=== PATIENT | female | born 1940 | race Hispanic/Latino ===

== ENCOUNTER 2017-05-01 14:51 | Emergency (ER) | payer OTHER ==
[~2017-05-01 14:51] MED LIST: DICY20TA11 PO; ISOS20TA7 PO; LEVO50TA11 PO; METO75TA PO; NITR0.4T50 SL; ONDA4TAB10 PO; OPIU10TI5 PO; POTA20TA82 PO; PRAV40TA3 PO; SERT100T12 PO; TEMA30CA PO
[2017-05-01 15:49] LABS: BASOPHILS % (AUTO) 0.8 % (0.0-5.0); EOSINOPHILS % (AUTO) 4.8 % (0.0-8.0); HEMATOCRIT 33.6 % (36-48); LYMPHOCYTES % (AUTO) 31.8 % (21.0-51.0); MEAN CORPUSCULAR HEMOGLOBIN 31.2 pg (27.0-33.0); MEAN CORPUSCULAR HGB CONC 33.1 g/dL (32.0-36.0); MEAN CORPUSCULAR VOLUME 94.2 fL (79-99); MONOCYTES % (AUTO) 17.7 % (3.0-13.0); NEUTROPHILS % (AUTO) 44.9 % (40.0-77.0); PLATELET COUNT (AUTO) 209 K/uL (130-400); RED BLOOD CELL COUNT(AUTO) 3.57 MIL/uL (4.00-5.50); WHITE BLOOD COUNT (AUTO) 7.9 K/uL (4.8-10.8)
[2017-05-01 16:03] LABS: INR 1.09 (0.85-1.15); PARTIAL THROMBOPLASTIN TIME 32.4 SEC (26.3-35.5); PROTHROMBIN TIME 11.4 SEC (9.6-11.6)
[2017-05-01 16:48] LABS: CREATININE 0.9 mg/dL (0.5-1.5); POTASSIUM 3.8 mmol/L (3.5-5.1)
[2017-05-01 16:55] LABS: ALBUMIN 1.8 g/dL (3.5-5.0); BILIRUBIN,TOTAL 0.3 mg/dL (0.2-1.0); TOTAL PROTEIN, SERUM 6.3 g/dL (6.0-8.3)
[2017-05-01 17:00] LABS: CREATINE KINASE MB < 0.5 ng/mL (0.5-3.6); CREATINE KINASE, TOTAL 158 U/L (21-232)
== END 2017-05-01 17:51 | disposition home or self-care (01) ==
LOC: EDH 14:51
DX: L02.31 Cutaneous abscess of buttock (principal); C79.60 Secondary malignant neoplasm of unspecified ovary; E78.5 Hyperlipidemia, unspecified; I10 Essential (primary) hypertension; E03.9 Hypothyroidism, unspecified; Z88.6 Allergy status to analgesic agent; Z72.0 Tobacco use
CPT/HCPCS: 36415; 71010; 72192; 80053; 82550; 82553; 84484; 85025; 85610; 85730; 93005

== ENCOUNTER 2017-05-26 17:26 | Inpatient (IN) | payer OTHER ==
[~2017-05-26] VITALS: Ht 154.9 cm; Wt 52.6 kg
[2017-05-26] MEDS ORDERED: ACETAMINOPHEN EXTRA STRENGTH 500 MG TABLET ONE (17:27)
[2017-05-26] MEDS ORDERED: CEFTRIAXONE SODIUM 1 GM ONE (17:47)
[2017-05-26 17:54] LABS: BASOPHILS % (AUTO) 0.4 % (0.0-5.0); EOSINOPHILS % (AUTO) 0.3 % (0.0-8.0); MEAN CORPUSCULAR HEMOGLOBIN 31.3 pg (27.0-33.0); MEAN CORPUSCULAR HGB CONC 33.4 g/dL (32.0-36.0); MEAN CORPUSCULAR VOLUME 93.7 fL (79-99); MONOCYTES % (AUTO) 4.7 % (3.0-13.0); NEUTROPHILS % (AUTO) 76.6 % (40.0-77.0); PLATELET COUNT (AUTO) 147 K/uL (130-400); RED BLOOD CELL COUNT(AUTO) 4.38 MIL/uL (4.00-5.50); RED CELL DISTRIBUTION WIDTH 17.4 % (11.0-15.5); WHITE BLOOD COUNT (AUTO) 14.4 K/uL (4.8-10.8)
[2017-05-26 18:06] LABS: CARBON DIOXIDE 24 mmol/L (21-32); CHLORIDE 100 mmol/L (101-111); GLOMERULAR FILTR. RATE CALC 57 mL/min (>60); GLUCOSE,RANDOM 85 mg/dL (70-105); INR 1.03 (0.85-1.15); PARTIAL THROMBOPLASTIN TIME 28.5 SEC (26.3-35.5); POTASSIUM 3.8 mmol/L (3.5-5.1); PROTHROMBIN TIME 10.8 SEC (9.6-11.6); SODIUM SERUM 135 mmol/L (136-145); UREA NITROGEN, BLOOD 14 mg/dL (7-18)
[2017-05-26 18:21] LABS: ALANINE AMINOTRANSFERASE 18 U/L (12-78); ALBUMIN 2.8 g/dL (3.5-5.0); ASPARTATE AMINOTRANSFERASE 33 U/L (10-37); BILIRUBIN,TOTAL 0.6 mg/dL (0.2-1.0); CREATINE KINASE MB < 0.5 ng/mL (0.5-3.6); MYOGLOBIN 267 ng/mL (10-92); TOTAL PROTEIN, SERUM 7.2 g/dL (6.0-8.3); TROPONIN I < 0.04 ng/mL (0.00-0.06)
[2017-05-26 18:23] LABS: CREATINE KINASE, TOTAL 439 U/L (21-232)
[2017-05-26 19:56] LABS: APPEARANCE,URINE CLOUDY (CLEAR); BILIRUBIN,URINE NEGATIVE (NEGATIVE); COLOR,URINE YELLOW (YELLOW); GLUCOSE, URINE (UA) NEGATIVE (NEGATIVE); KETONES,URINE NEGATIVE (NEGATIVE); LEUKOCYTE ESTERASE ,URINE LARGE (NEGATIVE); NITRATE,URINE POSITIVE (NEGATIVE); OCCULT BLOOD,URINE LARGE (NEGATIVE); PH,URINE 5.5 (5.0-8.0); PROTEIN,URINE TRACE (NEGATIVE); UROBILINOGEN,URINE 0.2 mg/dL (0.2-1.0)
[2017-05-26 20:03] LABS: WBC,URINE >100 /HPF (0-1)
[2017-05-26 20:05] LABS: BACTERIA,URINE Moderate /HPF (None Seen)
[2017-05-26 20:06] LABS: MUCUS,URINE Few LPF (None Seen); SQUAMOUS EPITHELIAL CELL,UR Rare /LPF (0-2)
[2017-05-26] MEDS ORDERED: DIPHENOXYLATE HCL/ATROPINE 2.5/0.025 MG TAB PO ONE (22:03)
[2017-05-26] MEDS ORDERED: MEPERIDINE-PF 25 MG/ML SYG ONE (22:05)
[2017-05-26] MEDS ORDERED: SODIUM CHLORIDE 0.9% 50 ML IV ONE (22:07)
[2017-05-26] MEDS ORDERED: LIDOCAINE HCL-MPF 1% 2ML VIAL IVP PRN (23:30)
[2017-05-26] MEDS ORDERED: LEVOFLOXACIN 500 MG/D5W 100 ML 100 ML IV SCH (23:30)
[2017-05-26] MEDS ORDERED: ZOSYN 3.375GM+NS 50ML 50 ML IV ONE (23:39)
[2017-05-26] MEDS ORDERED: LEVOFLOXACIN 500 MG/D5W 100 ML 100 ML ONE (23:40)
[2017-05-26] MEDS ORDERED: SODIUM CHLORIDE 0.9% 1000ML 1,000 ML IV ONE (23:40)
[2017-05-27] VITALS (7 sets, daily range): BP systolic 108–130; BP diastolic 58–71
[2017-05-27] MEDS ORDERED: DiphenhydrAMINE HCL 50 MG/ML VIAL ONE (00:04)
[2017-05-27] MEDS ORDERED: DiphenhydrAMINE HCL 25 MG/10 ML ELIXIR UDCUP PO PRN (00:15)
[2017-05-27] MEDS: SODIUM CHLORIDE 0.9% 1000ML 1,000 ML IV SCH ×2 (03:22→20:30)
[2017-05-27] MEDS ORDERED: MEGE400O4 PO (04:16)
[2017-05-27] MEDS ORDERED: ATOR10 PO (04:16)
[2017-05-27] MEDS ORDERED: MORP15TA70 PO (04:16)
[2017-05-27] MEDS ORDERED: FAMO-136 PO (04:16)
[2017-05-27] MEDS ORDERED: MORPHINE IR PO (04:16)
[2017-05-27] MEDS: ZOSYN 3.375GM+NS 50ML 50 ML IV SCH ×3 (05:20→20:05)
[2017-05-27] MEDS: IPRATROPIUM/ALBUTEROL SULFATE 3 ML SOLUTION IH SCH ×5 (06:24→23:31)
[2017-05-27] MEDS: ONDANSETRON HCL 4 MG/2 ML VIAL IV PRN ×2 (07:18→19:58)
[2017-05-27] MEDS: FAMOTIDINE/PF 20 MG/2 ML VIAL IV SCH ×2 (09:57→20:01)
[2017-05-27] MEDS: GUAIFENESIN-DM 200/20 MG 10 ML PO PRN (09:57)
[2017-05-27] MEDS: ENOXAPARIN SODIUM 40 MG/0.4 ML SYRINGE SQ SCH (10:00)
[2017-05-27] MEDS ORDERED: MORPHINE IR 30 MG PO PRN (11:00)
[2017-05-27] MEDS ORDERED: NITROGLYCERIN 0.4 MG SL TAB SL SCH (11:00)
[2017-05-27] MEDS ORDERED: ONDANSETRON ODT 4 MG TAB PO SCH (11:00)
[2017-05-27] MEDS ORDERED: TEMAZEPAM 30 MG CAP PO PRN (11:00)
[2017-05-27] MEDS ORDERED: COMPOUND PO MISCELLANEOUS 1 EACH MISC MISC PRN (11:00)
[2017-05-27] MEDS ORDERED: LORAZEPAM 2 MG/ML 1 ML VIAL IVP PRN (12:00)
[2017-05-27] MEDS: ACETAMINOPHEN 325 MG TAB PO PRN (12:48)
[2017-05-27] MEDS: METRONIDAZOLE 500MG/100ML BAG 100 ML IV SCH ×2 (14:40→20:08)
[2017-05-27] MEDS: OSELTAMIVIR SUSP 15 MG/ML (6 CAPS/29ML) PO SCH ×2 (20:04)
[2017-05-27] MEDS: ATORVASTATIN CALCIUM 10 MG TABLET PO SCH (20:11)
[2017-05-27] MEDS: MORPHINE SULFATE IR 15 MG TAB 15 MG TABLET PO PRN (20:21)
[2017-05-27] MEDS: METOPROLOL TARTRATE 50 MG TAB PO SCH (20:22)
[2017-05-27] MEDS ORDERED: OSELTAMIVIR PHOSPHATE 75 MG CAP PO SCH (21:00)
[2017-05-28] MEDS: GUAIFENESIN-DM 200/20 MG 10 ML PO PRN ×2 (02:43→21:32)
[2017-05-28] MEDS: ACETAMINOPHEN 325 MG TAB PO PRN (02:48)
[2017-05-28 03:21] LABS: HEMATOCRIT 34.7 % (36-48); MEAN CORPUSCULAR HEMOGLOBIN 31.8 pg (27.0-33.0); MEAN CORPUSCULAR HGB CONC 33.6 g/dL (32.0-36.0); MEAN CORPUSCULAR VOLUME 94.7 fL (79-99); PLATELET COUNT (AUTO) 107 K/uL (130-400); RED BLOOD CELL COUNT(AUTO) 3.67 MIL/uL (4.00-5.50); RED CELL DISTRIBUTION WIDTH 17.7 % (11.0-15.5); WHITE BLOOD COUNT (AUTO) 16.2 K/uL (4.8-10.8)
[2017-05-28 03:31] LABS: CREATININE 0.9 mg/dL (0.5-1.5)
[2017-05-28 03:38] LABS: POTASSIUM 2.9 mmol/L (3.5-5.1)
[2017-05-28 04:00] VITALS: BP 115/57
[2017-05-28] MEDS: ZOSYN 3.375GM+NS 50ML 50 ML IV SCH ×3 (05:37→21:31)
[2017-05-28] MEDS: METRONIDAZOLE 500MG/100ML BAG 100 ML IV SCH ×3 (05:38→21:32)
[2017-05-28] MEDS: POTASSIUM CHLORIDE 20 MEQ ERTAB PO PRN ×2 (05:40→17:31)
[2017-05-28] MEDS: IPRATROPIUM/ALBUTEROL SULFATE 3 ML SOLUTION IH SCH ×4 (06:17→23:48)
[2017-05-28 08:49] VITALS: BP 115/61
[2017-05-28] MEDS ORDERED: OPIUM PO PRN (09:00)
[2017-05-28] MEDS: MEGESTROL 400 MG/10 ML UDCUP PO SCH (10:27)
[2017-05-28] MEDS: SERTRALINE HCL 50 MG TABLET PO SCH (10:28)
[2017-05-28] MEDS: LEVOTHYROXINE 50 MCG TABLET PO SCH (10:28)
[2017-05-28] MEDS: ISOSORBIDE MONONITRATE 20 MG TABLET PO SCH (10:28)
[2017-05-28] MEDS: FAMOTIDINE/PF 20 MG/2 ML VIAL IV SCH ×2 (10:29→21:30)
[2017-05-28] MEDS: POTASSIUM CHLORIDE 20 MEQ ERTAB PO SCH (10:29)
[2017-05-28] MEDS: POTASSIUM CHLORIDE 20MEQ/100ML 100 ML IV PRN (10:29)
[2017-05-28] MEDS: MORPHINE SULFATE IR 15 MG TAB 15 MG TABLET PO PRN (10:33)
[2017-05-28] MEDS: METOPROLOL TARTRATE 50 MG TAB PO SCH ×2 (10:39→21:32)
[2017-05-28] MEDS: OSELTAMIVIR SUSP 15 MG/ML (6 CAPS/29ML) PO SCH ×4 (10:39→21:32)
[2017-05-28] MEDS: ENOXAPARIN SODIUM 40 MG/0.4 ML SYRINGE SQ SCH (10:41)
[2017-05-28 12:19] VITALS: BP 113/69
[2017-05-28 16:00] VITALS: BP 103/58
[2017-05-28] MEDS: POTASSIUM CHLORIDE 10% ELIXIR 20 MEQ/15 ML UDCUP PO PRN (17:31)
[2017-05-28 19:54] VITALS: BP 116/56
[2017-05-28] MEDS: ATORVASTATIN CALCIUM 10 MG TABLET PO SCH (21:32)
[2017-05-28 23:00] VITALS: BP 150/63
[2017-05-28] MEDS: ACETYLCYSTEINE 20% 200MG/ML 4ML VIAL IH SCH (23:54)
[2017-05-29 03:00] VITALS: BP 145/74
[2017-05-29 03:36] LABS: HEMATOCRIT 33.6 % (36-48); MEAN CORPUSCULAR HEMOGLOBIN 31.9 pg (27.0-33.0); MEAN CORPUSCULAR HGB CONC 33.7 g/dL (32.0-36.0); MEAN CORPUSCULAR VOLUME 94.5 fL (79-99); NUCLEATED RED BLOOD CELLS 0.1 % (0.0-0.19); PLATELET COUNT (AUTO) 103 K/uL (130-400); RED BLOOD CELL COUNT(AUTO) 3.55 MIL/uL (4.00-5.50); RED CELL DISTRIBUTION WIDTH 17.6 % (11.0-15.5); WHITE BLOOD COUNT (AUTO) 12.3 K/uL (4.8-10.8)
[2017-05-29 03:50] LABS: CREATININE 0.8 mg/dL (0.5-1.5); POTASSIUM 3.1 mmol/L (3.5-5.1)
[2017-05-29] MEDS: ZOSYN 3.375GM+NS 50ML 50 ML IV SCH ×3 (05:16→22:32)
[2017-05-29] MEDS: METRONIDAZOLE 500MG/100ML BAG 100 ML IV SCH ×3 (05:16→20:50)
[2017-05-29] MEDS: POTASSIUM CHLORIDE 20 MEQ ERTAB PO PRN (06:17)
[2017-05-29] MEDS: IPRATROPIUM/ALBUTEROL SULFATE 3 ML SOLUTION IH SCH ×4 (06:54→23:42)
[2017-05-29] MEDS: ACETYLCYSTEINE 20% 200MG/ML 4ML VIAL IH SCH ×3 (06:57→23:43)
[2017-05-29 08:15] VITALS: BP 138/73
[2017-05-29] MEDS: MEGESTROL 400 MG/10 ML UDCUP PO SCH (08:45)
[2017-05-29] MEDS: POTASSIUM CHLORIDE 10% ELIXIR 20 MEQ/15 ML UDCUP PO PRN (08:47)
[2017-05-29] MEDS: ONDANSETRON HCL 4 MG/2 ML VIAL IV PRN (08:47)
[2017-05-29] MEDS: ACETAMINOPHEN 325 MG TAB PO PRN (09:08)
[2017-05-29] MEDS: ISOSORBIDE MONONITRATE 20 MG TABLET PO SCH (09:09)
[2017-05-29] MEDS: POTASSIUM CHLORIDE 20 MEQ ERTAB PO SCH (09:09)
[2017-05-29] MEDS: LEVOTHYROXINE 50 MCG TABLET PO SCH (09:09)
[2017-05-29] MEDS: SERTRALINE HCL 50 MG TABLET PO SCH (09:10)
[2017-05-29] MEDS: METOPROLOL TARTRATE 50 MG TAB PO SCH ×2 (09:10→20:49)
[2017-05-29] MEDS: ENOXAPARIN SODIUM 40 MG/0.4 ML SYRINGE SQ SCH (09:11)
[2017-05-29] MEDS: FAMOTIDINE/PF 20 MG/2 ML VIAL IV SCH ×2 (09:11→20:49)
[2017-05-29] MEDS: OSELTAMIVIR SUSP 15 MG/ML (6 CAPS/29ML) PO SCH ×4 (09:11→21:03)
[2017-05-29] MEDS ORDERED: ACETYLCYSTEINE 20% 200MG/ML 4ML VIAL ONE (11:00)
[2017-05-29 12:16] VITALS: BP 112/53
[2017-05-29 15:44] VITALS: BP 119/64
[2017-05-29] MEDS: NYSTATIN 30 GM CREAM.GM. TP SCH (18:46)
[2017-05-29 19:00] VITALS: BP 141/77
[2017-05-29] MEDS: ATORVASTATIN CALCIUM 10 MG TABLET PO SCH (20:49)
[2017-05-29] MEDS: MORPHINE SULFATE IR 15 MG TAB 15 MG TABLET PO PRN (20:56)
[2017-05-29 23:00] VITALS: BP 151/73
[2017-05-30 03:00] VITALS: BP 166/67
[2017-05-30] MEDS: MAGNESIUM 2GM PREMIX 50ML 50 ML IV SCH (03:19)
[2017-05-30] MEDS: METRONIDAZOLE 500MG/100ML BAG 100 ML IV SCH (05:34)
[2017-05-30] MEDS: IPRATROPIUM/ALBUTEROL SULFATE 3 ML SOLUTION IH SCH ×4 (05:47→23:53)
[2017-05-30] MEDS: ACETYLCYSTEINE 20% 200MG/ML 4ML VIAL IH SCH ×4 (05:48→23:53)
[2017-05-30 06:05] LABS: HEMATOCRIT 32.8 % (36-48); MEAN CORPUSCULAR HEMOGLOBIN 31.5 pg (27.0-33.0); MEAN CORPUSCULAR HGB CONC 33.5 g/dL (32.0-36.0); PLATELET COUNT (AUTO) 131 K/uL (130-400); RED BLOOD CELL COUNT(AUTO) 3.49 MIL/uL (4.00-5.50); WHITE BLOOD COUNT (AUTO) 10.5 K/uL (4.8-10.8)
[2017-05-30 06:12] LABS: CREATININE 0.8 mg/dL (0.5-1.5); MAGNESIUM 2.3 mg/dL (1.80-2.40); POTASSIUM 3.3 mmol/L (3.5-5.1)
[2017-05-30] MEDS: ZOSYN 3.375GM+NS 50ML 50 ML IV SCH ×3 (06:59→20:53)
[2017-05-30 07:56] VITALS: BP 164/81
[2017-05-30] MEDS: OSELTAMIVIR SUSP 15 MG/ML (6 CAPS/29ML) PO SCH ×4 (08:24→20:50)
[2017-05-30] MEDS: POTASSIUM CHLORIDE 20 MEQ ERTAB PO SCH (08:26)
[2017-05-30] MEDS: ISOSORBIDE MONONITRATE 20 MG TABLET PO SCH (08:26)
[2017-05-30] MEDS: SERTRALINE HCL 50 MG TABLET PO SCH (08:26)
[2017-05-30] MEDS: METOPROLOL TARTRATE 50 MG TAB PO SCH ×2 (08:27→20:53)
[2017-05-30] MEDS: LEVOTHYROXINE 50 MCG TABLET PO SCH (08:27)
[2017-05-30] MEDS: MORPHINE SULFATE IR 15 MG TAB 15 MG TABLET PO PRN (08:27)
[2017-05-30] MEDS: FAMOTIDINE/PF 20 MG/2 ML VIAL IV SCH ×2 (08:28→20:53)
[2017-05-30] MEDS: MEGESTROL 400 MG/10 ML UDCUP PO SCH (08:28)
[2017-05-30] MEDS: ENOXAPARIN SODIUM 30 MG/0.3 ML SQ SCH (08:29)
[2017-05-30] MEDS: NYSTATIN 30 GM CREAM.GM. TP SCH ×2 (08:29→20:53)
[2017-05-30] MEDS ORDERED: VANCOMYCIN PROTOCOL PER PHARMACY IV PRN (10:30)
[2017-05-30] MEDS ORDERED: VANCOMYCIN 1GM+NS 250ML 250 ML IV SCH (10:30)
[2017-05-30] MEDS: FUROSEMIDE 10 MG/ML 2ML VIAL IV SCH ×2 (11:27→22:44)
[2017-05-30] MEDS: METRONIDAZOLE 500 MG TABLET PO SCH ×2 (11:27→16:27)
[2017-05-30 11:45] VITALS: BP 133/70
[2017-05-30 16:24] VITALS: BP 134/73
[2017-05-30] MEDS: ACETAMINOPHEN 325 MG TAB PO PRN (16:28)
[2017-05-30] MEDS: MEPERIDINE-PF 25 MG/ML SYG IVP PRN (16:48)
[2017-05-30 19:00] VITALS: BP 111/55
[2017-05-30] MEDS: ONDANSETRON HCL 4 MG/2 ML VIAL IV PRN (19:59)
[2017-05-30] MEDS: ATORVASTATIN CALCIUM 10 MG TABLET PO SCH (20:53)
[2017-05-30] MEDS: POTASSIUM CHLORIDE 20MEQ/100ML 100 ML IV PRN (20:58)
[2017-05-30 23:00] VITALS: BP 113/51
[2017-05-31] MEDS: METRONIDAZOLE 500 MG TABLET PO SCH ×3 (01:45→18:30)
[2017-05-31 03:00] VITALS: BP 153/90
[2017-05-31] MEDS: ZOSYN 3.375GM+NS 50ML 50 ML IV SCH (05:19)
[2017-05-31] MEDS: ONDANSETRON HCL 4 MG/2 ML VIAL IV PRN ×3 (06:38→14:38)
[2017-05-31 06:57] LABS: HEMATOCRIT 38.1 % (36-48); MEAN CORPUSCULAR HEMOGLOBIN 31.6 pg (27.0-33.0); MEAN CORPUSCULAR HGB CONC 33.7 g/dL (32.0-36.0); MEAN CORPUSCULAR VOLUME 93.7 fL (79-99); NUCLEATED RED BLOOD CELLS 0.1 % (0.0-0.19); PLATELET COUNT (AUTO) 139 K/uL (130-400); RED BLOOD CELL COUNT(AUTO) 4.07 MIL/uL (4.00-5.50); RED CELL DISTRIBUTION WIDTH 17.5 % (11.0-15.5); WHITE BLOOD COUNT (AUTO) 13.6 K/uL (4.8-10.8)
[2017-05-31] MEDS: IPRATROPIUM/ALBUTEROL SULFATE 3 ML SOLUTION IH SCH ×4 (07:08→23:39)
[2017-05-31 07:16] LABS: CREATININE 0.8 mg/dL (0.5-1.5); POTASSIUM 3.4 mmol/L (3.5-5.1)
[2017-05-31 07:59] LABS: B-TYPE NATRIURETIC PEPTIDE 665 pg/mL (0-100)
[2017-05-31 08:00] VITALS: BP 115/65
[2017-05-31] MEDS: MEPERIDINE-PF 25 MG/ML SYG IVP PRN ×2 (08:15→15:58)
[2017-05-31] MEDS: FAMOTIDINE/PF 20 MG/2 ML VIAL IV SCH ×2 (08:24→20:03)
[2017-05-31] MEDS: NYSTATIN 30 GM CREAM.GM. TP SCH ×2 (08:26→20:09)
[2017-05-31] MEDS: ISOSORBIDE MONONITRATE 20 MG TABLET PO SCH (08:58)
[2017-05-31] MEDS: MEGESTROL 400 MG/10 ML UDCUP PO SCH (08:58)
[2017-05-31] MEDS: LEVOTHYROXINE 50 MCG TABLET PO SCH (08:59)
[2017-05-31] MEDS: POTASSIUM CHLORIDE 20 MEQ ERTAB PO SCH (08:59)
[2017-05-31] MEDS: SERTRALINE HCL 50 MG TABLET PO SCH (08:59)
[2017-05-31] MEDS: METOPROLOL TARTRATE 50 MG TAB PO SCH ×2 (09:00→20:10)
[2017-05-31] MEDS: ENOXAPARIN SODIUM 30 MG/0.3 ML SQ SCH (09:01)
[2017-05-31 11:00] VITALS: BP 134/77
[2017-05-31] MEDS: FUROSEMIDE 10 MG/ML 2ML VIAL IV SCH ×3 (11:00→23:54)
[2017-05-31] MEDS ORDERED: CEFTRIAXONE 1GM/D5W 50ML 50 ML IV SCH (11:00)
[2017-05-31] MEDS: OSELTAMIVIR SUSP 15 MG/ML (6 CAPS/29ML) PO SCH ×4 (11:18→20:10)
[2017-05-31] MEDS: CEFTRIAXONE SODIUM 1 GM IVP SCH (11:33)
[2017-05-31] MEDS: METHYLPREDNISOLONE SOD SUCC 40MG/ML 1ML IVP SCH ×2 (11:35→20:03)
[2017-05-31] MEDS: VANCOMYCIN 1GM+NS 250ML 250 ML IV SCH (11:35)
[2017-05-31 16:00] VITALS: BP 118/63
[2017-05-31] MEDS: ACETAMINOPHEN 325 MG TAB PO PRN (17:54)
[2017-05-31 19:40] VITALS: BP_SYST 105; BP_SYST 115; BP_DIAS 52; BP_DIAS 70
[2017-05-31] MEDS: ATORVASTATIN CALCIUM 10 MG TABLET PO SCH (20:10)
[2017-05-31 23:40] VITALS: BP 128/88
[2017-06-01] MEDS: METRONIDAZOLE 500 MG TABLET PO SCH ×4 (02:30→18:26)
[2017-06-01] MEDS: METHYLPREDNISOLONE SOD SUCC 40MG/ML 1ML IVP SCH ×3 (02:53→18:27)
[2017-06-01 03:05] VITALS: BP 128/77
[2017-06-01 06:20] LABS: MEAN CORPUSCULAR HEMOGLOBIN 31.7 pg (27.0-33.0); MEAN CORPUSCULAR HGB CONC 34.3 g/dL (32.0-36.0); MEAN CORPUSCULAR VOLUME 92.3 fL (79-99); NUCLEATED RED BLOOD CELLS 0.1 % (0.0-0.19); PLATELET COUNT (AUTO) 177 K/uL (130-400); RED BLOOD CELL COUNT(AUTO) 4.01 MIL/uL (4.00-5.50); RED CELL DISTRIBUTION WIDTH 17.8 % (11.0-15.5); WHITE BLOOD COUNT (AUTO) 6.3 K/uL (4.8-10.8)
[2017-06-01 06:28] LABS: CREATININE 1.2 mg/dL (0.5-1.5); POTASSIUM 3.2 mmol/L (3.5-5.1)
[2017-06-01 06:36] LABS: B-TYPE NATRIURETIC PEPTIDE 351 pg/mL (0-100)
[2017-06-01] MEDS: IPRATROPIUM/ALBUTEROL SULFATE 3 ML SOLUTION IH SCH ×3 (06:37→20:20)
[2017-06-01 08:00] VITALS: BP 146/96
[2017-06-01] MEDS: POTASSIUM CHLORIDE 20 MEQ ERTAB PO PRN (09:00)
[2017-06-01] MEDS: POTASSIUM CHLORIDE 20MEQ/100ML 100 ML IV PRN (10:03)
[2017-06-01] MEDS: FAMOTIDINE/PF 20 MG/2 ML VIAL IV SCH ×2 (10:09→19:58)
[2017-06-01] MEDS: ONDANSETRON HCL 4 MG/2 ML VIAL IV PRN ×2 (10:25→17:53)
[2017-06-01] MEDS: MEGESTROL 400 MG/10 ML UDCUP PO SCH (10:25)
[2017-06-01] MEDS: METOPROLOL TARTRATE 50 MG TAB PO SCH ×2 (10:25→19:58)
[2017-06-01] MEDS: SERTRALINE HCL 50 MG TABLET PO SCH (10:26)
[2017-06-01] MEDS: POTASSIUM CHLORIDE 20 MEQ ERTAB PO SCH (10:26)
[2017-06-01] MEDS: ISOSORBIDE MONONITRATE 20 MG TABLET PO SCH (10:27)
[2017-06-01] MEDS: ENOXAPARIN SODIUM 30 MG/0.3 ML SQ SCH (10:31)
[2017-06-01] MEDS: MEPERIDINE-PF 25 MG/ML SYG IVP PRN ×2 (10:32→17:52)
[2017-06-01] MEDS: NYSTATIN 30 GM CREAM.GM. TP SCH ×2 (10:35→21:21)
[2017-06-01] MEDS: LEVOTHYROXINE 50 MCG TABLET PO SCH (10:35)
[2017-06-01] MEDS: VANCOMYCIN 1GM+NS 250ML 250 ML IV SCH (10:37)
[2017-06-01] MEDS: CEFTRIAXONE SODIUM 1 GM IVP SCH ×2 (10:38→11:38)
[2017-06-01 11:00] VITALS: BP 142/87
[2017-06-01 16:00] VITALS: BP 149/85
[2017-06-01 19:00] VITALS: BP 140/74
[2017-06-01] MEDS: ATORVASTATIN CALCIUM 10 MG TABLET PO SCH (19:58)
[2017-06-01 23:00] VITALS: BP 141/89
[2017-06-02] MEDS: IPRATROPIUM/ALBUTEROL SULFATE 3 ML SOLUTION IH SCH ×5 (01:05→23:28)
[2017-06-02] MEDS: METRONIDAZOLE 500 MG TABLET PO SCH ×3 (02:44→18:53)
[2017-06-02] MEDS: METHYLPREDNISOLONE SOD SUCC 40MG/ML 1ML IVP SCH ×3 (02:44→18:53)
[2017-06-02 03:00] VITALS: BP 151/89
[2017-06-02 04:14] LABS: HEMATOCRIT 33.9 % (36-48); MEAN CORPUSCULAR HEMOGLOBIN 31.8 pg (27.0-33.0); MEAN CORPUSCULAR HGB CONC 34.4 g/dL (32.0-36.0); MEAN CORPUSCULAR VOLUME 92.4 fL (79-99); NUCLEATED RED BLOOD CELLS 0.1 % (0.0-0.19); PLATELET COUNT (AUTO) 183 K/uL (130-400); RED BLOOD CELL COUNT(AUTO) 3.67 MIL/uL (4.00-5.50); RED CELL DISTRIBUTION WIDTH 17.7 % (11.0-15.5); WHITE BLOOD COUNT (AUTO) 7.7 K/uL (4.8-10.8)
[2017-06-02 04:15] LABS: CREATININE 1.6 mg/dL (0.5-1.5); POTASSIUM 3.3 mmol/L (3.5-5.1)
[2017-06-02 04:26] LABS: B-TYPE NATRIURETIC PEPTIDE 274 pg/mL (0-100)
[2017-06-02] MEDS: POTASSIUM CHLORIDE 20MEQ/100ML 100 ML IV PRN ×2 (05:53→09:04)
[2017-06-02] MEDS: ONDANSETRON HCL 4 MG/2 ML VIAL IV PRN ×2 (07:34→19:21)
[2017-06-02] MEDS: MEPERIDINE-PF 25 MG/ML SYG IVP PRN (07:36)
[2017-06-02 08:00] VITALS: BP 141/87
[2017-06-02] MEDS: FAMOTIDINE/PF 20 MG/2 ML VIAL IV SCH ×2 (08:55→21:08)
[2017-06-02] MEDS: MEGESTROL 400 MG/10 ML UDCUP PO SCH (08:57)
[2017-06-02] MEDS: LEVOTHYROXINE 50 MCG TABLET PO SCH (08:57)
[2017-06-02] MEDS: METOPROLOL TARTRATE 50 MG TAB PO SCH ×2 (08:59→21:08)
[2017-06-02] MEDS: SERTRALINE HCL 50 MG TABLET PO SCH (09:00)
[2017-06-02] MEDS: POTASSIUM CHLORIDE 20 MEQ ERTAB PO SCH (09:02)
[2017-06-02] MEDS: ISOSORBIDE MONONITRATE 20 MG TABLET PO SCH (09:02)
[2017-06-02] MEDS: ENOXAPARIN SODIUM 30 MG/0.3 ML SQ SCH (09:03)
[2017-06-02] MEDS: NYSTATIN 30 GM CREAM.GM. TP SCH ×2 (09:04→21:31)
[2017-06-02] MEDS: VANCOMYCIN 1GM+NS 250ML 250 ML IV SCH (11:25)
[2017-06-02 12:00] VITALS: BP 141/82
[2017-06-02] MEDS: DICYCLOMINE HCL 20 MG TAB PO PRN (13:12)
[2017-06-02 16:00] VITALS: BP 152/90
[2017-06-02 20:20] VITALS: BP 147/91
[2017-06-02] MEDS: ATORVASTATIN CALCIUM 10 MG TABLET PO SCH (21:08)
[2017-06-02 23:28] VITALS: BP 158/95
[2017-06-03] MEDS: METRONIDAZOLE 500 MG TABLET PO SCH ×3 (03:00→17:54)
[2017-06-03] MEDS: METHYLPREDNISOLONE SOD SUCC 40MG/ML 1ML IVP SCH ×3 (03:00→18:14)
[2017-06-03] MEDS: MORPHINE SULFATE IR 15 MG TAB 15 MG TABLET PO PRN ×2 (03:07→08:09)
[2017-06-03 03:54] VITALS: BP 175/94
[2017-06-03 04:16] LABS: HEMATOCRIT 33.6 % (36-48); MEAN CORPUSCULAR HEMOGLOBIN 31.2 pg (27.0-33.0); MEAN CORPUSCULAR HGB CONC 33.6 g/dL (32.0-36.0); MEAN CORPUSCULAR VOLUME 92.7 fL (79-99); PLATELET COUNT (AUTO) 195 K/uL (130-400); RED BLOOD CELL COUNT(AUTO) 3.63 MIL/uL (4.00-5.50); RED CELL DISTRIBUTION WIDTH 17.7 % (11.0-15.5)
[2017-06-03 04:30] LABS: CREATININE 1.6 mg/dL (0.5-1.5); POTASSIUM 3.7 mmol/L (3.5-5.1)
[2017-06-03] MEDS: IPRATROPIUM/ALBUTEROL SULFATE 3 ML SOLUTION IH SCH ×4 (06:45→23:36)
[2017-06-03 08:00] VITALS: BP 150/91
[2017-06-03] MEDS: FAMOTIDINE/PF 20 MG/2 ML VIAL IV SCH ×2 (09:09→21:35)
[2017-06-03] MEDS: LEVOTHYROXINE 50 MCG TABLET PO SCH (09:10)
[2017-06-03] MEDS: SERTRALINE HCL 50 MG TABLET PO SCH (09:10)
[2017-06-03] MEDS: POTASSIUM CHLORIDE 20 MEQ ERTAB PO SCH (09:10)
[2017-06-03] MEDS: ISOSORBIDE MONONITRATE 20 MG TABLET PO SCH (09:10)
[2017-06-03] MEDS: METOPROLOL TARTRATE 50 MG TAB PO SCH ×2 (09:10→21:35)
[2017-06-03] MEDS: ENOXAPARIN SODIUM 30 MG/0.3 ML SQ SCH (09:11)
[2017-06-03] MEDS: MEGESTROL 400 MG/10 ML UDCUP PO SCH (09:11)
[2017-06-03] MEDS: NYSTATIN 30 GM CREAM.GM. TP SCH ×2 (09:17→21:38)
[2017-06-03] MEDS: CEFTRIAXONE SODIUM 1 GM IVP SCH (09:56)
[2017-06-03] MEDS: VANCOMYCIN 1GM+NS 250ML 250 ML IV SCH (09:56)
[2017-06-03 11:45] VITALS: BP 135/79
[2017-06-03 16:00] VITALS: BP 138/76
[2017-06-03 20:00] VITALS: BP 136/85
[2017-06-03] MEDS: ATORVASTATIN CALCIUM 10 MG TABLET PO SCH (21:36)
[2017-06-04] VITALS: BP 151/92
[2017-06-04 04:00] VITALS: BP 145/96
[2017-06-04] MEDS: METRONIDAZOLE 500 MG TABLET PO SCH ×3 (04:20→18:14)
[2017-06-04] MEDS: METHYLPREDNISOLONE SOD SUCC 40MG/ML 1ML IVP SCH ×3 (04:20→18:15)
[2017-06-04] MEDS: DICYCLOMINE HCL 20 MG TAB PO PRN (04:30)
[2017-06-04 04:52] LABS: CREATININE 1.5 mg/dL (0.5-1.5); POTASSIUM 3.9 mmol/L (3.5-5.1)
[2017-06-04] MEDS: IPRATROPIUM/ALBUTEROL SULFATE 3 ML SOLUTION IH SCH ×3 (06:14→19:27)
[2017-06-04 07:30] VITALS: BP 157/98
[2017-06-04] MEDS: MEGESTROL 400 MG/10 ML UDCUP PO SCH (09:39)
[2017-06-04] MEDS: ISOSORBIDE MONONITRATE 20 MG TABLET PO SCH (09:40)
[2017-06-04] MEDS: METOPROLOL TARTRATE 50 MG TAB PO SCH ×2 (09:40→22:10)
[2017-06-04] MEDS: POTASSIUM CHLORIDE 20 MEQ ERTAB PO SCH (09:40)
[2017-06-04] MEDS: SERTRALINE HCL 50 MG TABLET PO SCH (09:41)
[2017-06-04] MEDS: LEVOTHYROXINE 50 MCG TABLET PO SCH (09:41)
[2017-06-04] MEDS: FAMOTIDINE/PF 20 MG/2 ML VIAL IV SCH ×2 (09:41→22:10)
[2017-06-04] MEDS: ENOXAPARIN SODIUM 30 MG/0.3 ML SQ SCH (09:42)
[2017-06-04] MEDS: NYSTATIN 30 GM CREAM.GM. TP SCH ×2 (09:42→22:10)
[2017-06-04] MEDS ORDERED: WATER FOR INJECTION,STERILE 5 ML VIAL ONE (10:54)
[2017-06-04] MEDS: CEFTRIAXONE SODIUM 1 GM IVP SCH (10:59)
[2017-06-04 11:00] VITALS: BP 182/108
[2017-06-04] MEDS: ONDANSETRON HCL 4 MG/2 ML VIAL IV PRN (11:35)
[2017-06-04 16:00] VITALS: BP 154/91
[2017-06-04 19:30] VITALS: BP 153/94
[2017-06-04] MEDS: ATORVASTATIN CALCIUM 10 MG TABLET PO SCH (22:10)
[2017-06-04] MEDS: ACETAMINOPHEN 325 MG TAB PO PRN (23:30)
[2017-06-05 00:16] VITALS: BP 155/83
[2017-06-05] MEDS: IPRATROPIUM/ALBUTEROL SULFATE 3 ML SOLUTION IH SCH ×4 (00:33→19:23)
[2017-06-05] MEDS: METRONIDAZOLE 500 MG TABLET PO SCH ×3 (03:17→18:47)
[2017-06-05] MEDS: METHYLPREDNISOLONE SOD SUCC 40MG/ML 1ML IVP SCH ×3 (03:17→18:47)
[2017-06-05 04:15] VITALS: BP 156/94
[2017-06-05] MEDS: LEVOTHYROXINE 50 MCG TABLET PO SCH (06:28)
[2017-06-05 07:00] VITALS: BP 156/98
[2017-06-05] MEDS ORDERED: WATER FOR INJECTION,STERILE 5 ML VIAL ONE (10:11)
[2017-06-05] MEDS: FLUCONAZOLE 200 MG/NS 100 ML 100 ML IV SCH (10:16)
[2017-06-05] MEDS: CEFTRIAXONE SODIUM 1 GM IVP SCH (10:22)
[2017-06-05] MEDS: MEGESTROL 400 MG/10 ML UDCUP PO SCH (10:22)
[2017-06-05] MEDS: FAMOTIDINE/PF 20 MG/2 ML VIAL IV SCH ×2 (10:22→22:49)
[2017-06-05] MEDS: SERTRALINE HCL 50 MG TABLET PO SCH (10:23)
[2017-06-05] MEDS: ISOSORBIDE MONONITRATE 20 MG TABLET PO SCH (10:23)
[2017-06-05] MEDS: METOPROLOL TARTRATE 50 MG TAB PO SCH ×2 (10:23→22:49)
[2017-06-05] MEDS: POTASSIUM CHLORIDE 20 MEQ ERTAB PO SCH (10:31)
[2017-06-05] MEDS: NYSTATIN 30 GM CREAM.GM. TP SCH ×2 (10:32→22:49)
[2017-06-05 11:00] VITALS: BP 166/101
[2017-06-05] MEDS: ACETAMINOPHEN 325 MG TAB PO PRN (11:44)
[2017-06-05] MEDS: VANCOMYCIN 1GM+NS 250ML 250 ML IV SCH (11:44)
[2017-06-05] MEDS: ONDANSETRON HCL 4 MG/2 ML VIAL IV PRN (11:45)
[2017-06-05] MEDS: HYDRALAZINE HCL 20 MG/ML VIAL IV PRN (13:30)
[2017-06-05] MEDS: MORPHINE SULFATE IR 15 MG TAB 15 MG TABLET PO PRN (14:03)
[2017-06-05 16:00] VITALS: BP 134/71
[2017-06-05 20:00] VITALS: BP 151/83
[2017-06-05] MEDS: ATORVASTATIN CALCIUM 10 MG TABLET PO SCH (22:49)
[2017-06-05] MEDS: TEMAZEPAM 30 MG CAP PO PRN (22:51)
[2017-06-06] VITALS (7 sets, daily range): BP systolic 146–170; BP diastolic 71–99
[2017-06-06] MEDS: METRONIDAZOLE 500 MG TABLET PO SCH ×3 (03:18→18:07)
[2017-06-06] MEDS: METHYLPREDNISOLONE SOD SUCC 40MG/ML 1ML IVP SCH ×3 (03:18→18:07)
[2017-06-06] MEDS: IPRATROPIUM/ALBUTEROL SULFATE 3 ML SOLUTION IH SCH ×4 (05:53→19:31)
[2017-06-06] MEDS: LEVOTHYROXINE 50 MCG TABLET PO SCH (06:18)
[2017-06-06 07:09] LABS: HEMATOCRIT 36.9 % (36-48); MEAN CORPUSCULAR HEMOGLOBIN 30.9 pg (27.0-33.0); MEAN CORPUSCULAR HGB CONC 32.7 g/dL (32.0-36.0); MEAN CORPUSCULAR VOLUME 94.3 fL (79-99); PLATELET COUNT (AUTO) 176 K/uL (130-400); RED BLOOD CELL COUNT(AUTO) 3.91 MIL/uL (4.00-5.50); RED CELL DISTRIBUTION WIDTH 17.8 % (11.0-15.5); WHITE BLOOD COUNT (AUTO) 14.6 K/uL (4.8-10.8)
[2017-06-06] MEDS ORDERED: WATER FOR INJECTION,STERILE 5 ML VIAL ONE (11:04)
[2017-06-06] MEDS: CEFTRIAXONE SODIUM 1 GM IVP SCH (11:12)
[2017-06-06] MEDS: FAMOTIDINE/PF 20 MG/2 ML VIAL IV SCH ×2 (11:12→22:43)
[2017-06-06] MEDS: VANCOMYCIN 1GM+NS 250ML 250 ML IV SCH (11:13)
[2017-06-06] MEDS: FLUCONAZOLE 200 MG/NS 100 ML 100 ML IV SCH (11:15)
[2017-06-06] MEDS: ISOSORBIDE MONONITRATE 20 MG TABLET PO SCH (11:16)
[2017-06-06] MEDS: METOPROLOL TARTRATE 50 MG TAB PO SCH ×2 (11:18→22:43)
[2017-06-06] MEDS: MEGESTROL 400 MG/10 ML UDCUP PO SCH (11:18)
[2017-06-06] MEDS: SERTRALINE HCL 50 MG TABLET PO SCH (11:27)
[2017-06-06] MEDS: POTASSIUM CHLORIDE 20 MEQ ERTAB PO SCH (11:28)
[2017-06-06] MEDS: NYSTATIN 30 GM CREAM.GM. TP SCH ×2 (11:29→22:44)
[2017-06-06] MEDS: ACETAMINOPHEN 325 MG TAB PO PRN (14:34)
[2017-06-06] MEDS: HYDRALAZINE HCL 20 MG/ML VIAL IV PRN (18:08)
[2017-06-06] MEDS: ATORVASTATIN CALCIUM 10 MG TABLET PO SCH (22:43)
[2017-06-07] VITALS (7 sets, daily range): BP systolic 137–174; BP diastolic 73–102
[2017-06-07] MEDS: METHYLPREDNISOLONE SOD SUCC 40MG/ML 1ML IVP SCH ×3 (02:42→18:56)
[2017-06-07] MEDS: METRONIDAZOLE 500 MG TABLET PO SCH ×3 (02:42→18:34)
[2017-06-07] MEDS: HYDRALAZINE HCL 20 MG/ML VIAL IV PRN (03:20)
[2017-06-07 06:12] LABS: HEMATOCRIT 39.2 % (36-48); MEAN CORPUSCULAR HEMOGLOBIN 30.5 pg (27.0-33.0); MEAN CORPUSCULAR HGB CONC 32.6 g/dL (32.0-36.0); MEAN CORPUSCULAR VOLUME 93.4 fL (79-99); PLATELET COUNT (AUTO) 278 K/uL (130-400); RED CELL DISTRIBUTION WIDTH 18.4 % (11.0-15.5); WHITE BLOOD COUNT (AUTO) 21.7 K/uL (4.8-10.8)
[2017-06-07 06:22] LABS: CREATININE 1.4 mg/dL (0.5-1.5)
[2017-06-07] MEDS: IPRATROPIUM/ALBUTEROL SULFATE 3 ML SOLUTION IH SCH ×4 (06:32→18:53)
[2017-06-07] MEDS: LEVOTHYROXINE 50 MCG TABLET PO SCH (07:06)
[2017-06-07] MEDS: MEGESTROL 400 MG/10 ML UDCUP PO SCH (08:17)
[2017-06-07] MEDS: ISOSORBIDE MONONITRATE 20 MG TABLET PO SCH (08:23)
[2017-06-07] MEDS: SERTRALINE HCL 50 MG TABLET PO SCH (08:23)
[2017-06-07] MEDS: FAMOTIDINE/PF 20 MG/2 ML VIAL IV SCH ×2 (08:23→21:01)
[2017-06-07] MEDS: ONDANSETRON HCL 4 MG/2 ML VIAL IV PRN (08:23)
[2017-06-07] MEDS: METOPROLOL TARTRATE 50 MG TAB PO SCH ×2 (08:23→20:58)
[2017-06-07] MEDS: MORPHINE SULFATE IR 15 MG TAB 15 MG TABLET PO PRN (08:25)
[2017-06-07] MEDS: CEFTRIAXONE SODIUM 1 GM IVP SCH (10:55)
[2017-06-07] MEDS: POTASSIUM CHLORIDE 20 MEQ ERTAB PO SCH (10:55)
[2017-06-07] MEDS: FLUCONAZOLE 200 MG/NS 100 ML 100 ML IV SCH (10:55)
[2017-06-07] MEDS: VANCOMYCIN 1GM+NS 250ML 250 ML IV SCH (11:00)
[2017-06-07] MEDS ORDERED: LORAZEPAM 0.5 MG TABLET ONE (11:08)
[2017-06-07] MEDS ORDERED: LORAZEPAM 0.5 MG TABLET PO PRN (11:15)
[2017-06-07] MEDS ORDERED: LOPERAMIDE HCL 1 MG/5 ML UNIT DOSE CUP PO ONE (12:15)
[2017-06-07] MEDS: NYSTATIN 30 GM CREAM.GM. TP SCH ×2 (15:36→21:01)
[2017-06-07] MEDS: MEROPENEM 1 GM VIAL IVP SCH (20:57)
[2017-06-07] MEDS: ATORVASTATIN CALCIUM 10 MG TABLET PO SCH (20:58)
[2017-06-07] MEDS ORDERED: MEROPENEM 1GM IVPB PREMIXED 1 GM IV SCH (21:00)
[2017-06-08] MEDS: IPRATROPIUM/ALBUTEROL SULFATE 3 ML SOLUTION IH SCH ×5 (00:04→23:38)
[2017-06-08] MEDS: METHYLPREDNISOLONE SOD SUCC 40MG/ML 1ML IVP SCH ×3 (02:45→21:31)
[2017-06-08] MEDS: METRONIDAZOLE 500 MG TABLET PO SCH ×3 (02:45→18:57)
[2017-06-08 03:20] VITALS: BP 168/93
[2017-06-08 03:54] LABS: HEMATOCRIT 35.8 % (36-48); MEAN CORPUSCULAR HEMOGLOBIN 31.5 pg (27.0-33.0); MEAN CORPUSCULAR HGB CONC 33.1 g/dL (32.0-36.0); MEAN CORPUSCULAR VOLUME 95.3 fL (79-99); PLATELET COUNT (AUTO) 142 K/uL (130-400); RED BLOOD CELL COUNT(AUTO) 3.76 MIL/uL (4.00-5.50); RED CELL DISTRIBUTION WIDTH 18.4 % (11.0-15.5); WHITE BLOOD COUNT (AUTO) 15.2 K/uL (4.8-10.8)
[2017-06-08 04:08] LABS: CREATININE 1.4 mg/dL (0.5-1.5); POTASSIUM 4.1 mmol/L (3.5-5.1)
[2017-06-08] MEDS: LEVOTHYROXINE 50 MCG TABLET PO SCH (06:29)
[2017-06-08 08:00] VITALS: BP 171/97
[2017-06-08] MEDS: POTASSIUM CHLORIDE 20 MEQ ERTAB PO SCH (10:18)
[2017-06-08] MEDS: FLUCONAZOLE 200 MG/NS 100 ML 100 ML IV SCH (10:18)
[2017-06-08] MEDS: ISOSORBIDE MONONITRATE 20 MG TABLET PO SCH (10:21)
[2017-06-08] MEDS: NYSTATIN 30 GM CREAM.GM. TP SCH ×2 (10:21→21:39)
[2017-06-08] MEDS: MEGESTROL 400 MG/10 ML UDCUP PO SCH (10:21)
[2017-06-08] MEDS: SERTRALINE HCL 50 MG TABLET PO SCH (10:21)
[2017-06-08] MEDS: MEROPENEM 1 GM VIAL IVP SCH ×2 (10:22→21:30)
[2017-06-08] MEDS: METOPROLOL TARTRATE 50 MG TAB PO SCH ×2 (10:22→21:30)
[2017-06-08 11:00] VITALS: BP 153/90
[2017-06-08] MEDS: FAMOTIDINE/PF 20 MG/2 ML VIAL IV SCH ×2 (12:27→21:30)
[2017-06-08 16:00] VITALS: BP 161/95
[2017-06-08] MEDS: HYDRALAZINE HCL 20 MG/ML VIAL IV PRN (16:27)
[2017-06-08 19:25] VITALS: BP 145/81
[2017-06-08] MEDS: ATORVASTATIN CALCIUM 10 MG TABLET PO SCH (21:30)
[2017-06-08] MEDS: CLOTRIMAZOLE 30 GM CREAM.GM. TP SCH (21:39)
[2017-06-08 23:45] VITALS: BP 162/82
[2017-06-09] MEDS: METHYLPREDNISOLONE SOD SUCC 40MG/ML 1ML IVP SCH ×3 (03:44→17:33)
[2017-06-09] MEDS: METRONIDAZOLE 500 MG TABLET PO SCH ×3 (03:44→17:33)
[2017-06-09 03:57] VITALS: BP 158/94
[2017-06-09] MEDS: IPRATROPIUM/ALBUTEROL SULFATE 3 ML SOLUTION IH SCH ×4 (06:29→23:04)
[2017-06-09] MEDS: LEVOTHYROXINE 50 MCG TABLET PO SCH (06:46)
[2017-06-09 07:00] VITALS: BP 150/93
[2017-06-09] MEDS: ONDANSETRON HCL 4 MG/2 ML VIAL IV PRN (09:32)
[2017-06-09] MEDS: MORPHINE SULFATE IR 15 MG TAB 15 MG TABLET PO PRN (09:32)
[2017-06-09] MEDS: CLOTRIMAZOLE 30 GM CREAM.GM. TP SCH ×2 (09:36→21:00)
[2017-06-09] MEDS: NYSTATIN 30 GM CREAM.GM. TP SCH ×2 (09:37→21:00)
[2017-06-09] MEDS: FLUCONAZOLE 200 MG/NS 100 ML 100 ML IV SCH (10:51)
[2017-06-09] MEDS: MEROPENEM 1 GM VIAL IVP SCH ×2 (10:51→20:30)
[2017-06-09] MEDS: MEGESTROL 400 MG/10 ML UDCUP PO SCH (10:54)
[2017-06-09] MEDS: METOPROLOL TARTRATE 50 MG TAB PO SCH ×2 (10:55→20:30)
[2017-06-09] MEDS: POTASSIUM CHLORIDE 20 MEQ ERTAB PO SCH (10:55)
[2017-06-09] MEDS: SERTRALINE HCL 50 MG TABLET PO SCH (10:55)
[2017-06-09] MEDS: ISOSORBIDE MONONITRATE 20 MG TABLET PO SCH (10:56)
[2017-06-09 11:00] VITALS: BP 149/87
[2017-06-09] MEDS: VANCOMYCIN 500MG+NS 100ML 100 ML IV SCH (13:15)
[2017-06-09] MEDS: FAMOTIDINE/PF 20 MG/2 ML VIAL IV SCH ×2 (13:15→20:29)
[2017-06-09 16:00] VITALS: BP 155/84
[2017-06-09] MEDS ORDERED: WATER FOR INJECTION,STERILE 20 ML VIAL ONE (19:58)
[2017-06-09 20:00] VITALS: BP 159/98
[2017-06-09] MEDS: TEMAZEPAM 30 MG CAP PO PRN (20:30)
[2017-06-09] MEDS: ATORVASTATIN CALCIUM 10 MG TABLET PO SCH (20:30)
[2017-06-10] VITALS: BP 154/99
[2017-06-10] MEDS: METHYLPREDNISOLONE SOD SUCC 40MG/ML 1ML IVP SCH ×3 (03:31→20:09)
[2017-06-10] MEDS: METRONIDAZOLE 500 MG TABLET PO SCH ×3 (03:31→18:30)
[2017-06-10 04:00] VITALS: BP 175/96
[2017-06-10] MEDS: ONDANSETRON HCL 4 MG/2 ML VIAL IV PRN (04:11)
[2017-06-10] MEDS: HYDRALAZINE HCL 20 MG/ML VIAL IV PRN ×2 (04:16→21:57)
[2017-06-10 04:52] LABS: HEMATOCRIT 36.7 % (36-48); MEAN CORPUSCULAR HEMOGLOBIN 31.4 pg (27.0-33.0); MEAN CORPUSCULAR HGB CONC 33.2 g/dL (32.0-36.0); MEAN CORPUSCULAR VOLUME 94.7 fL (79-99); PLATELET COUNT (AUTO) 114 K/uL (130-400); RED BLOOD CELL COUNT(AUTO) 3.87 MIL/uL (4.00-5.50); RED CELL DISTRIBUTION WIDTH 18.5 % (11.0-15.5); WHITE BLOOD COUNT (AUTO) 17.8 K/uL (4.8-10.8)
[2017-06-10 05:05] LABS: CREATININE 1.3 mg/dL (0.5-1.5); MAGNESIUM 1.3 mg/dL (1.80-2.40); POTASSIUM 4.2 mmol/L (3.5-5.1)
[2017-06-10] MEDS: LEVOTHYROXINE 50 MCG TABLET PO SCH (06:35)
[2017-06-10 07:00] VITALS: BP 117/65
[2017-06-10] MEDS: IPRATROPIUM/ALBUTEROL SULFATE 3 ML SOLUTION IH SCH ×5 (07:11→22:08)
[2017-06-10] MEDS: NYSTATIN 30 GM CREAM.GM. TP SCH ×2 (10:07→21:00)
[2017-06-10] MEDS: CLOTRIMAZOLE 30 GM CREAM.GM. TP SCH ×2 (10:08→21:00)
[2017-06-10] MEDS: METOPROLOL TARTRATE 50 MG TAB PO SCH ×2 (10:24→20:05)
[2017-06-10] MEDS: FAMOTIDINE/PF 20 MG/2 ML VIAL IV SCH ×2 (10:25→20:09)
[2017-06-10] MEDS: FLUCONAZOLE 200 MG/NS 100 ML 100 ML IV SCH (10:25)
[2017-06-10] MEDS: ISOSORBIDE MONONITRATE 20 MG TABLET PO SCH (10:25)
[2017-06-10] MEDS: MEROPENEM 1 GM VIAL IVP SCH ×2 (10:25→20:10)
[2017-06-10] MEDS: POTASSIUM CHLORIDE 20 MEQ ERTAB PO SCH (10:26)
[2017-06-10] MEDS: MEGESTROL 400 MG/10 ML UDCUP PO SCH (10:27)
[2017-06-10] MEDS: SERTRALINE HCL 50 MG TABLET PO SCH (10:27)
[2017-06-10 11:00] VITALS: BP 174/86
[2017-06-10] MEDS: MAGNESIUM 2GM PREMIX 50ML 50 ML IV SCH (11:47)
[2017-06-10] MEDS: VANCOMYCIN 500MG+NS 100ML 100 ML IV SCH (12:49)
[2017-06-10 20:00] VITALS: BP 174/109
[2017-06-10] MEDS: ATORVASTATIN CALCIUM 10 MG TABLET PO SCH (20:08)
[2017-06-10] MEDS ORDERED: ACETAMINOPHEN 325 MG TAB PO ONE (21:56)
[2017-06-10] MEDS: ACETAMINOPHEN 325 MG TAB PO PRN (22:00)
[2017-06-10 23:55] VITALS: BP 156/91
[2017-06-11] MEDS: IPRATROPIUM/ALBUTEROL SULFATE 3 ML SOLUTION IH SCH ×6 (01:25→22:00)
[2017-06-11] MEDS: METHYLPREDNISOLONE SOD SUCC 40MG/ML 1ML IVP SCH ×3 (02:10→18:17)
[2017-06-11] MEDS: METRONIDAZOLE 500 MG TABLET PO SCH ×3 (02:10→18:17)
[2017-06-11 04:00] VITALS: BP 169/95
[2017-06-11] MEDS: LEVOTHYROXINE 50 MCG TABLET PO SCH (06:27)
[2017-06-11] MEDS: HYDRALAZINE HCL 20 MG/ML VIAL IV PRN (06:27)
[2017-06-11] MEDS: DICYCLOMINE HCL 20 MG TAB PO PRN (08:18)
[2017-06-11 08:31] VITALS: BP 141/88
[2017-06-11] MEDS ORDERED: WATER FOR INJECTION,STERILE 5 ML VIAL ONE (09:28)
[2017-06-11] MEDS ORDERED: DICYCLOMINE HCL 20 MG TAB PO PRN (10:11)
[2017-06-11] MEDS ORDERED: DEXTROSE 5 % AND 0.9 % NACL 1,000 ML IV SCH (10:15)
[2017-06-11] MEDS: FLUCONAZOLE 200 MG/NS 100 ML 100 ML IV SCH (11:22)
[2017-06-11] MEDS: MEROPENEM 1 GM VIAL IVP SCH ×2 (11:25→21:00)
[2017-06-11] MEDS: METOPROLOL TARTRATE 50 MG TAB PO SCH ×2 (11:32→21:01)
[2017-06-11] MEDS: ISOSORBIDE MONONITRATE 20 MG TABLET PO SCH (11:32)
[2017-06-11] MEDS: POTASSIUM CHLORIDE 20 MEQ ERTAB PO SCH (11:33)
[2017-06-11] MEDS: SERTRALINE HCL 50 MG TABLET PO SCH (11:33)
[2017-06-11] MEDS: MEGESTROL 400 MG/10 ML UDCUP PO SCH (11:34)
[2017-06-11 11:36] VITALS: BP 145/91
[2017-06-11] MEDS: NYSTATIN 30 GM CREAM.GM. TP SCH ×2 (11:43→21:01)
[2017-06-11] MEDS: FAMOTIDINE/PF 20 MG/2 ML VIAL IV SCH ×2 (11:43→21:00)
[2017-06-11] MEDS: CLOTRIMAZOLE 30 GM CREAM.GM. TP SCH ×2 (11:44→21:01)
[2017-06-11] MEDS: VANCOMYCIN 500MG+NS 100ML 100 ML IV SCH (13:00)
[2017-06-11] MEDS ORDERED: MORPHINE SULFATE 2 MG/ML 1ML SYG IVP PRN (13:00)
[2017-06-11] MEDS ORDERED: MORPHINE SULFATE 4 MG/1ML SYG ONE (13:21)
[2017-06-11] MEDS ORDERED: MORPHINE SULFATE 4 MG/1ML SYG IVP PRN (13:30)
[2017-06-11] MEDS: MORPHINE SULFATE 4 MG/1ML SYG IVP PRN (13:50)
[2017-06-11 15:47] VITALS: BP 156/99
[2017-06-11] MEDS: DEXTROSE 5 %-0.45 % NACL 1,000 ML IV SCH (18:17)
[2017-06-11 19:00] VITALS: BP 154/87
[2017-06-11] MEDS: ATORVASTATIN CALCIUM 10 MG TABLET PO SCH (21:01)
[2017-06-11] MEDS: MORPHINE SULFATE IR 15 MG TAB 15 MG TABLET PO PRN (21:10)
[2017-06-11 23:00] VITALS: BP 157/88
[2017-06-12] MEDS: METRONIDAZOLE 500 MG TABLET PO SCH ×3 (02:30→18:30)
[2017-06-12] MEDS: IPRATROPIUM/ALBUTEROL SULFATE 3 ML SOLUTION IH SCH ×6 (02:51→22:32)
[2017-06-12] MEDS: METHYLPREDNISOLONE SOD SUCC 40MG/ML 1ML IVP SCH ×3 (02:59→19:04)
[2017-06-12 03:00] VITALS: BP 166/88
[2017-06-12 04:10] LABS: CREATININE 1.5 mg/dL (0.5-1.5); POTASSIUM 3.8 mmol/L (3.5-5.1)
[2017-06-12] MEDS: LEVOTHYROXINE 50 MCG TABLET PO SCH (06:02)
[2017-06-12 08:00] VITALS: BP 173/84
[2017-06-12] MEDS: MORPHINE SULFATE 4 MG/1ML SYG IVP PRN ×2 (09:29→14:56)
[2017-06-12] MEDS: DEXTROSE 5 %-0.45 % NACL 1,000 ML IV SCH (09:30)
[2017-06-12] MEDS: FLUCONAZOLE 200 MG/NS 100 ML 100 ML IV SCH (09:30)
[2017-06-12] MEDS: FAMOTIDINE/PF 20 MG/2 ML VIAL IV SCH ×2 (09:35→20:36)
[2017-06-12] MEDS: METOPROLOL TARTRATE 50 MG TAB PO SCH ×2 (09:35→20:35)
[2017-06-12] MEDS: POTASSIUM CHLORIDE 20 MEQ ERTAB PO SCH (09:36)
[2017-06-12] MEDS: SERTRALINE HCL 50 MG TABLET PO SCH (09:36)
[2017-06-12] MEDS: ISOSORBIDE MONONITRATE 20 MG TABLET PO SCH (09:37)
[2017-06-12] MEDS: MEROPENEM 1 GM VIAL IVP SCH ×2 (09:37→20:35)
[2017-06-12] MEDS: MEGESTROL 400 MG/10 ML UDCUP PO SCH (09:37)
[2017-06-12 11:45] VITALS: BP 131/86
[2017-06-12] MEDS: NYSTATIN 30 GM CREAM.GM. TP SCH ×2 (14:43→20:36)
[2017-06-12] MEDS: CLOTRIMAZOLE 30 GM CREAM.GM. TP SCH ×2 (14:44→20:35)
[2017-06-12 15:54] VITALS: BP 141/78
[2017-06-12] MEDS ORDERED: COMPOUND IV REFRIGERATED 1 EACH IVSOLN MISC PRN (16:00)
[2017-06-12] MEDS ORDERED: VANCOMYCIN 0.75 GM in SODIUM CHLORIDE 0.9% 250 ML IV SCH (16:00)
[2017-06-12] MEDS ORDERED: MORPHINE SULFATE 5 MG/ML VIAL ONE (18:59)
[2017-06-12 20:00] VITALS: BP 127/73
[2017-06-12] MEDS: ATORVASTATIN CALCIUM 10 MG TABLET PO SCH (20:35)
[2017-06-13] MEDS: IPRATROPIUM/ALBUTEROL SULFATE 3 ML SOLUTION IH SCH ×5 (02:00→17:08)
[2017-06-13] MEDS: METRONIDAZOLE 500 MG TABLET PO SCH (02:30)
[2017-06-13] MEDS: METHYLPREDNISOLONE SOD SUCC 40MG/ML 1ML IVP SCH ×3 (02:56→19:40)
[2017-06-13] MEDS: LEVOTHYROXINE 50 MCG TABLET PO SCH (06:00)
[2017-06-13 08:17] VITALS: BP 100/67
[2017-06-13] MEDS: METOPROLOL TARTRATE 50 MG TAB PO SCH (09:00)
[2017-06-13] MEDS: POTASSIUM CHLORIDE 20 MEQ ERTAB PO SCH (09:00)
[2017-06-13] MEDS: MEGESTROL 400 MG/10 ML UDCUP PO SCH (09:00)
[2017-06-13] MEDS: SERTRALINE HCL 50 MG TABLET PO SCH (09:00)
[2017-06-13] MEDS: ISOSORBIDE MONONITRATE 20 MG TABLET PO SCH (09:00)
[2017-06-13] MEDS ORDERED: MORPHINE SULFATE 5 MG/ML VIAL ONE (09:28)
[2017-06-13] MEDS: CLOTRIMAZOLE 30 GM CREAM.GM. TP SCH (09:35)
[2017-06-13] MEDS: NYSTATIN 30 GM CREAM.GM. TP SCH (09:35)
[2017-06-13] MEDS: MEROPENEM 1 GM VIAL IVP SCH ×2 (09:41→19:40)
[2017-06-13] MEDS: FLUCONAZOLE 200 MG/NS 100 ML 100 ML IV SCH (09:43)
[2017-06-13] MEDS: FAMOTIDINE/PF 20 MG/2 ML VIAL IV SCH ×2 (09:43→19:40)
[2017-06-13] MEDS ORDERED: FUROSEMIDE 10 MG/ML 4ML VIAL IV SCH (10:15)
[2017-06-13 11:13] VITALS: BP 115/61
[2017-06-13 19:00] VITALS: BP 87/28
[2017-06-13] MEDS: ATORVASTATIN CALCIUM 10 MG TABLET PO SCH (19:41)
== END 2017-06-13 20:04 | disposition expired | DRG 871 ==
LOC: EDH 17:26 → EDHIP 20:25 → OBSVTOIN 20:25 → 3BH 23:39
PROVIDERS: ADMIT Family Medicine; ATTEND Family Medicine
DX: A41.9 Sepsis, unspecified organism (principal); J15.0 Pneumonia due to Klebsiella pneumoniae; E43 Unspecified severe protein-calorie malnutrition; J81.0 Acute pulmonary edema; J96.90 Respiratory failure, unspecified, unspecified whether with hypoxia or hypercapnia; N17.9 Acute kidney failure, unspecified; A04.72 Enterocolitis due to Clostridium difficile, not specified as recurrent; D69.6 Thrombocytopenia, unspecified; B37.0 Candidal stomatitis; N39.0 Urinary tract infection, site not specified; N82.3 Fistula of vagina to large intestine; C56.9 Malignant neoplasm of unspecified ovary; E03.9 Hypothyroidism, unspecified; E78.5 Hyperlipidemia, unspecified; I10 Essential (primary) hypertension; J20.9 Acute bronchitis, unspecified; E87.6 Hypokalemia; B96.1 Klebsiella pneumoniae [K. pneumoniae] as the cause of diseases classified elsewhere; G89.4 Chronic pain syndrome; F32.9 Major depressive disorder, single episode, unspecified; Z51.5 Encounter for palliative care; Z66 Do not resuscitate; Z74.01 Bed confinement status; Z85.038 Personal history of other malignant neoplasm of large intestine; Z90.710 Acquired absence of both cervix and uterus; Z92.21 Personal history of antineoplastic chemotherapy; Z90.49 Acquired absence of other specified parts of digestive tract; Z98.49 Cataract extraction status, unspecified eye; Z88.8 Allergy status to other drugs, medicaments and biological substances; Z68.21 Body mass index [BMI] 21.0-21.9, adult; Z88.0 Allergy status to penicillin
CPT/HCPCS: 31720; 36415; 71010; 71045; 71250; 80048; 80053; 80202; 81001; 82550; 82553; 83605; 83735; 83874; 83880; 84484; 85025; 85027; 85610; 85730; 86304; 87040; 87088; 87186; 87324; 87804; 93005; 93306; 94640; 94664; 94667; 97039; 99291; A4218; J0360; J0696; J1200; J1450; J1650; J1940; J1956; J2060; J2175; J2185; J2270; J2405; J2543; J2920; J3370; J3475; J3480; J3490; J7030; J7042; J7608